=== PATIENT | male | born 1960 | race Caucasian/White ===

== ENCOUNTER 2017-10-05 17:18 | Inpatient (IN) | payer OTHER ==
[2017-10-05 17:43] VITALS: BMI 35.2
--- NOTE | 2017-10-05 21:36 | HP ---
CIWA Score - CIWA Score Nausea/Vomitin-Mild Nausea/No Vomiting Muscle Tremors: 4-Moderate,w/Arms Extend Anxiety: 4-Mod. Anxious/Guarded Agitation: 4-Moderately Restless Paroxysmal Sweats: 1-Minimal Palms Moist Orientation: 2-Disoriented Date<2 days Tacttile Disturbances: 0-None Auditory Disturbances: 0-None Visual Disturbances: 0-None Headache: 0-None Present CIWA-Ar Total Score: 16 Admission ROS BHS - HPI Chief Complaint: withdrawal sx Allergies/Adverse Reactions: Allergies Allergy/AdvReac Type Severity Reaction Status Date / Time No Known Allergies Allergy Verified 10/05/17 19:22 History of Present Illness: 56 years old male with long history of alcohol nicotine dependence has hypertension bipolar ii is admitted to detox Exam Limitations: No Limitations - Ebola screening Have you traveled outside of the country in the last 21 days: No Have you had contact with anyone from an Ebola affected area: No Have you been sick,other than usual withdrawal symptoms: No Do you have a fever: No - Review of Systems Constitutional: Changes in sleep, Weight Stable EENT: reports: Blurred Vision (eye glasses) Respiratory: reports: SOB with Exertion Cardiac: reports: No Symptoms Reported GI: reports: Nausea, Poor Fluid Intake, Abdominal cramping : reports: No Symptoms Reported Musculoskeletal: reports: Joint Pain (left knee and ankle) Integumentary: reports: No Symptoms Reported Neuro: reports: Seizure (09/28/17 cocaine induced no treatment), Tremors Endocrine: reports: No Symptoms Reported Hematology: reports: No Symptoms Reported Psychiatric: reports: Judgement Intact, Anxious, Depressed Other Systems: Reviewed and Negative Patient History - Patient Medical History Hx Anemia: No Hx Asthma: No Hx Chronic Obstructive Pulmonary Disease (COPD): No Hx Cancer: No Hx Cardiac Disorders: No Hx Congestive Heart Failure: No Hx Hypertension: Yes Hx Hypercholesterolemia: No Hx Pacemaker: No HX Cerebrovascular Accident: No Hx Seizures: Yes (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) Hx Dementia: No Hx Diabetes: No Hx Gastrointestinal Disorders: No Hx Liver Disease: No Hx Genitourinary Disorders: No Hx Sexually Transmitted Disorders: No Hx Renal Disease (ESRD): No Hx Thyroid Disease: No Hx Human Immunodeficiency Virus (HIV): No Hx Hepatitis C: No Hx Depression: No Hx Suicide Attempt: No Hx Bipolar Disorder: Yes Hx Schizophrenia: No - Patient Surgical History Past Surgical History: No Hx Neurologic Surgery: No Hx Cataract Extraction: No Hx Cardiac Surgery: No Hx Lung Surgery: No Hx Breast Surgery: No Hx Breast Biopsy: No Hx Abdominal Surgery: No Hx Appendectomy: No Hx Cholecystectomy: No Hx Genitourinary Surgery: No Hx Orthopedic Surgery: No - PPD History Previous Implant?: Yes Documented Results: Negative w/o proof Implanted On Prior [facility] Admission?: No PPD to be Administered?: Yes - Reproductive History Patient : No - Smoking Cessation Smoking history: Current every day smoker Have you smoked in the past 12 months: Yes Aproximately how many cigarettes per day: 40 Cigars Per Day: 0 Hx Chewing Tobacco Use: No Initiated information on smoking cessation: Yes 'Breaking Loose' booklet given: 10/05/17 - Substance & Tx. History Hx Alcohol Use: Yes Hx Substance Use: Yes Substance Use Type: Alcohol, Marijuana Hx Substance Use Treatment: Yes ([facility] 09/08/17) - Substances Abused Cocaine Route: Inhalation Frequency: Daily Amount used: $20 Age of first use: 17 Date of Last Use: 10/04/17 ETOH Route: Oral Frequency: Daily Amount used: 1 PINT -VODKA Age of first use: 17 Date of Last Use: 10/03/17 Marijuana/Hashish Route: Smoking Frequency: Daily Amount used: blund Age of first use: 15 Date of Last Use: 10/05/17 Family Disease History - Family Disease History Family Disease History: Other: Mother (dialysis kidney) Admission Physical Exam BHS - Vital Signs Vital Signs: Vital Signs - 24 hr 10/05/17 17:42 Temperature 97.5 F L Pulse Rate 69 Respiratory 18 Rate Blood Pressure 165/96 - Physical General Appearance: Yes: Appropriately Dressed, Mild Distress, Obese, Tremorous , Irritable, Sweating, Anxious HEENTM: Yes: Hearing grossly Normal, Normal ENT Inspection, Normocephalic, Normal Voice, Other (eye glasses) Respiratory: Yes: Chest Non-Tender, No Respiratory Distress, No Accessory Muscle Use, Hyperresonant Neck: Yes: Supple, Trachea in good position Breast: Yes: Breasts Symetrical Cardiology: Yes: Regular Rhythm, Regular Rate, S1, S2 Abdominal: Yes: Non Tender, Soft, Increased Bowel Sounds Genitourinary: Yes: Within Normal Limits Back: Yes: Normal Inspection Musculoskeletal: Yes: full range of Motion, Gait Steady, Muscle Pain (left knee) Extremities: Yes: Normal Inspection, Normal Range of Motion, Non-Tender, Tremors Neurological: Yes: Alert, Motor Strength 5/5, Normal Response, Depressed Affect Integumentary: Yes: Warm Lymphatic: Yes: Within Normal Limits - Diagnostic (1) Alcohol dependence with uncomplicated withdrawal Current Visit: Yes Status: Acute (2) Nicotine dependence Current Visit: Yes Status: Acute Qualifiers: Nicotine product type: cigarettes Substance use status: in withdrawal Qualified Code(s): F17.213 - Nicotine dependence, cigarettes, with withdrawal (3) Bipolar II disorder Current Visit: Yes Status: Suspected (4) Hypertension Current Visit: Yes Status: Chronic Qualifiers: Hypertension type: essential hypertension Qualified Code(s): I10 - Essential (primary) hypertension Cleared for Admission S - Detox or Rehab [facility] Level of Care: Medically Managed Detox Regimen/Protocol: Librium S Breath Alcohol Content Breath Alcohol Content: 0 Urine Drug Screen - Control Is Test Valid: Yes - Results Drug Screen Negative: No Urine Drug Screen Results: THC-Marijuana
[2017-10-05] MEDS ORDERED: NICOTINE POLACRILEX 4 MG GUM BC PRN (21:43)
[2017-10-05] MEDS ORDERED: guaiFENesin/D-METHORPHAN HB 10 ML UNIT-DOSE CUPS PO PRN (21:43)
[2017-10-05] MEDS ORDERED: MAGNESIUM CITRATE 300 ML BOTTLE PO PRN (21:43)
[2017-10-05] MEDS ORDERED: MAG HYDROX/AL HYDROX/SIMETH 30 ML UNIT-DOSE CUP PO PRN (21:43)
[2017-10-05] MEDS ORDERED: MAGNESIUM HYDROX 2400MG/30ML ORAL SUSPENSION 30 ML CUP PO PRN (21:43)
[2017-10-05] MEDS ORDERED: IBUPROFEN 400 MG TABLET (FP) PO PRN (21:43)
[2017-10-05] MEDS ORDERED: LOPERAMIDE HCL 2 MG CAPSULE PO PRN (21:43)
[2017-10-05] MEDS ORDERED: chlordiazePOXIDE HCL 25 MG CAPSULE PO PRN (21:43)
[2017-10-05] MEDS ORDERED: P-EPHED 60MG/TRIPROLIDI 2.5MG TABLET PO PRN (21:43)
[2017-10-05] MEDS ORDERED: ACETAMINOPHEN 325 MG TABLET (FP) PO PRN (21:43)
[2017-10-05] MEDS ORDERED: MENTHOL/PHENOL 1 EACH UD MM PRN (21:43)
[2017-10-05] MEDS ORDERED: ALBUTEROL SO4 0.083% IH SOL 2.5 MG/3 ML VIAL.NEB. NEB PRN (21:49)
[2017-10-05] MEDS ORDERED: ALBUTEROL SO4 18 GM HFA INHALER IH PRN (21:49)
[2017-10-05] MEDS: THIAMINE HCL 100 MG TABLET (FP) PO SCH (22:26)
[2017-10-05] MEDS: chlordiazePOXIDE HCL 25 MG CAPSULE PO SCH (22:27)
[2017-10-05] MEDS: amLODIPine BESYLATE 5 MG TABLET (FP) PO SCH (22:27)
[2017-10-06] MEDS: chlordiazePOXIDE HCL 25 MG CAPSULE PO SCH ×4 (06:54→22:10)
[2017-10-06 09:55] LABS: ALBUMIN 2.8 g/dl (3.4-5.0); ALK PHOS 109 U/L (45-117); ANION GAP 5 (8-16); BILIRUBIN,TOTAL 0.9 mg/dL (0.2-1.0); BLOOD UREA NITROGEN 14 mg/dL (7-18); CHLORIDE 109 mmol/L (98-107); CO2 29 mmol/L (21-32); CREATININE 0.6 mg/dL (0.7-1.3); GLUCOSE,RANDOM 87 mg/dL (74-106); POTASSIUM 3.6 mmol/L (3.5-5.1); SGOT/AST 42 U/L (15-37); SGPT/ALT 44 U/L (12-78); SODIUM 143 mmol/L (136-145); TOT PROT 6.9 g/dl (6.4-8.2)
[2017-10-06 09:58] LABS: HEMATOCRIT 45.7 % (35.4-49); HEMOGLOBIN 15.2 GM/dL (11.7-16.9); MCHC 33.2 g/dl (32.0-35.9); MEAN CELL VOLUME 102.2 fl (80-96); MEAN PLT VOLUME 10.4 fl (7.5-11.1); PLATELET COUNT 187 K/MM3 (134-434); RBC 4.48 M/mm3 (4.00-5.60); WHITE BLOOD COUNT 9.1 K/mm3 (4.0-10.0)
[2017-10-06] MEDS: amLODIPine BESYLATE 5 MG TABLET (FP) PO SCH ×2 (11:21→22:10)
[2017-10-06] MEDS: NICOTINE 21 MG/24 HOURS TOPICAL PATCH TD SCH (11:21)
[2017-10-06] MEDS: PRENATAL VITAMINS W/ FOLIC ACID TABLET (FP) PO SCH (11:21)
--- NOTE | 2017-10-06 11:40 | CONSULT ---
[facility] Psychiatric Consult - Data Date of interview: 10/06/17 Admission source: [facility] Identifying data: Pt is a 56 year old male, single, without kids, unemployed and homeless. This is patient's first admission to [facility]. Pt. admitted to for cocaine, alcohol, and marijuana dependence. Substance Abuse History: Following information confirmed by Mr. Mosquera: Smoking Cessation. Smoking history: Current every day smoker. Have you smoked in the past 12 months: Yes. Aproximately how many cigarettes per day: 40. - Substance & Tx. History. Hx Alcohol Use: Yes. Hx Substance Use: Yes. Substance Use Type: Alcohol, Marijuana. Hx Substance Use Treatment: Yes ([facility] 09/08/17). Cocaine- Route: Inhalation Frequency: Daily. Amount used : $20 Age of first use: 17. Date of Last Use: 10/04/17. ETOH- Route: Oral Frequency: Daily. Amount used: 1 PINT -VODKA Age of first use: 17. Date of Last Use: 10/03/17. Marijuana/Hashish- Route: Smoking. Frequency: Daily Amount used: blund. Age of first use: 15. Date of Last Use: 10/05/17 Medical History: Hypertension, Seizure (cocaine induced in 2017) Psychiatric History: Pt. denies h/o psychiatric hospitalizations and suicide attempts. Physical/Sexual Abuse/Trauma History: Denies. Additional Comment: Urine Drug Screen Results: THC-Marijuana Mental Status Exam - Mental Status Exam Alert and Oriented to: Time, Place, Person Cognitive Function: Fair Patient Appearance: Unkempt Mood: Withdrawn Affect: Flat Patient Behavior: Sedated, Fatigued, Guarded Speech Pattern: Delayed Voice Loudness: Moderately Soft/Quiet Thought Process: Goal Oriented Thought Disorder: Not Present Hallucinations: Denies Suicidal Ideation: Denies Homicidal Ideation: Denies Insight/Judgement: Poor Sleep: Fair Appetite: Fair Muscle strength/Tone: Normal Gait/Station: Other (Did not observe patient's walk as interview was conducted while patient was laying in bed.) Psychiatric Findings - Problem List ([place] 1, 2,3) (1) Alcohol dependence with uncomplicated withdrawal Current Visit: Yes Status: Acute (2) Cocaine dependence Current Visit: Yes Status: Acute (3) Cannabis dependence Current Visit: Yes Status: Acute (4) Nicotine dependence Current Visit: Yes Status: Acute Qualifiers: Nicotine product type: cigarettes Substance use status: in withdrawal Qualified Code(s): F17.213 - Nicotine dependence, cigarettes, with withdrawal - Initial Treatment Plan Initial Treatment Plan: Psychoeducation provided. Detox in progress. Observation.
[2017-10-06] MEDS ORDERED: FLU VACCINE QUAD 60 MCG/0.5 ML (MDV 17-18) IM ONE (12:00)
--- NOTE | 2017-10-06 15:28 | PN ---
S CIWA - CIWA Score Nausea/Vomitin Muscle Tremors: 3 Anxiety: 4-Mod. Anxious/Guarded Agitation: 4-Moderately Restless Paroxysmal Sweats: 3 Orientation: 0-Oriented Tacttile Disturbances: 1-Very Mild Itch/Numbness Auditory Disturbances: 0-None Visual Disturbances: 0-None Headache: 0-None Present CIWA-Ar Total Score: 18 BHS Progress Note (SOAP) Subjective: Sweating, nausea, interrupted sleep, anxious Objective: 10/06/17 15:26 Last Vital Signs Temp Pulse Resp BP Pulse Ox 98.2 F 76 20 156/90 10/06/17 15:01 10/06/17 15:01 10/06/17 15:01 10/06/17 15:01 Laboratory Tests 10/06/17 10/06/17 10/06/17 07:30 07:30 07:30 WBC 9.1 RBC 4.48 Hgb 15.2 Hct 45.7 MCV 102.2 H MCH 34.0 H MCHC 33.2 RDW 14.0 Plt Count 187 D MPV 10.4 Sodium 143 Potassium 3.6 Chloride 109 H Carbon Dioxide 29 Anion Gap 5 L BUN 14 D Creatinine 0.6 L Creat Clearance w eGFR > 60 Random Glucose 87 D Calcium 8.0 L Total Bilirubin 0.9 AST 42 H D ALT 44 D Alkaline Phosphatase 109 D Total Protein 6.9 Albumin 2.8 L RPR Titer Nonreactive Labs noted Assessment: 10/06/17 15:27 Withdrawal symptoms Plan: Continue detox Encouraged to drink lots of water
[2017-10-06] MEDS: cloNIDine HCL 0.1 MG TABLET PO PRN (22:10)
[2017-10-06] MEDS: THIAMINE HCL 100 MG TABLET (FP) PO SCH (22:10)
[2017-10-07] MEDS: chlordiazePOXIDE HCL 25 MG CAPSULE PO SCH ×4 (05:52→17:51)
[2017-10-07] MEDS: amLODIPine BESYLATE 5 MG TABLET (FP) PO SCH ×2 (10:19→22:07)
[2017-10-07] MEDS: PRENATAL VITAMINS W/ FOLIC ACID TABLET (FP) PO SCH (10:19)
[2017-10-07] MEDS: NICOTINE 21 MG/24 HOURS TOPICAL PATCH TD SCH ×2 (10:20→11:25)
--- NOTE | 2017-10-07 11:32 | EKG ---
Test Reason : Blood Pressure : / mmHG Vent. Rate : 072 BPM Atrial Rate : 072 BPM P-R Int : 148 ms QRS Dur : 092 ms QT Int : 414 ms P-R-T Axes : 002 008 043 degrees QTc Int : 453 ms NORMAL SINUS RHYTHM LEFT VENTRICULAR HYPERTROPHY WITH REPOLARIZATION ABNORMALITY ABNORMAL ECG WHEN COMPARED WITH ECG OF 22-OCT-2011 09:14, VENT. RATE HAS INCREASED BY 25 BPM NONSPECIFIC T WAVE ABNORMALITY NO LONGER EVIDENT IN INFERIOR LEADS NONSPECIFIC T WAVE ABNORMALITY NO LONGER EVIDENT IN ANTERIOR LEADS CLINICAL CORRELATION IS RECOMMENDED Confirmed by JOSHUA LE, PALAK ([id number]) on 10/07/2017 11:31:53 AM Referred By: Confirmed By:PALAK LEWIS MD
--- NOTE | 2017-10-07 16:36 | PN ---
[facility] CIWA - CIWA Score Nausea/Vomitin Muscle Tremors: 3 Anxiety: 3 Agitation: 3 Paroxysmal Sweats: 1-Minimal Palms Moist Orientation: 0-Oriented Tacttile Disturbances: 0-None Auditory Disturbances: 0-None Visual Disturbances: 0-None Headache: 0-None Present CIWA-Ar Total Score: 12 S Progress Note (SOAP) Subjective: sleepy, nauseous, tremulous and anxious Objective: 10/07/17 16:34 Vital Signs Temperature 97.9 F 10/07/17 14:27 Pulse Rate 70 10/07/17 14:27 Respiratory Rate 185 H 10/07/17 14:27 Blood Pressure 142/74 10/07/17 14:27 O2 Sat by Pulse Oximetry (%) Laboratory Last Values WBC 9.1 K/mm3 (4.0-10.0) 10/06/17 07:30 RBC 4.48 M/mm3 (4.00-5.60) 10/06/17 07:30 Hgb 15.2 GM/dL (11.7-16.9) 10/06/17 07:30 Hct 45.7 % (35.4-49) 10/06/17 07:30 MCV 102.2 fl (80-96) H 10/06/17 07:30 MCH 34.0 pg (25.7-33.7) H 10/06/17 07:30 MCHC 33.2 g/dl (32.0-35.9) 10/06/17 07:30 RDW 14.0 % (11.9-15.9) 10/06/17 07:30 Plt Count 187 K/MM3 (134-434) D 10/06/17 07:30 MPV 10.4 fl (7.5-11.1) 10/06/17 07:30 Sodium 143 mmol/L (136-145) 10/06/17 07:30 Potassium 3.6 mmol/L (3.5-5.1) 10/06/17 07:30 Chloride 109 mmol/L (98-107) H 10/06/17 07:30 Carbon Dioxide 29 mmol/L (21-32) 10/06/17 07:30 Anion Gap 5 (8-16) L 10/06/17 07:30 BUN 14 mg/dL (7-18) D 10/06/17 07:30 Creatinine 0.6 mg/dL (0.7-1.3) L 10/06/17 07:30 Creat Clearance w eGFR > 60 (>60) 10/06/17 07:30 Random Glucose 87 mg/dL (74-106) D 10/06/17 07:30 Calcium 8.0 mg/dL (8.5-10.1) L 10/06/17 07:30 Total Bilirubin 0.9 mg/dL (0.2-1.0) 10/06/17 07:30 AST 42 U/L (15-37) H D 10/06/17 07:30 ALT 44 U/L (12-78) D 10/06/17 07:30 Alkaline Phosphatase 109 U/L (45-117) D 10/06/17 07:30 Total Protein 6.9 g/dl (6.4-8.2) 10/06/17 07:30 Albumin 2.8 g/dl (3.4-5.0) L 10/06/17 07:30 RPR Titer Nonreactive (NONREACTIVE) 10/06/17 07:30 labs noted Assessment: 10/07/17 16:35 withdrawal sx Not in acute distress Plan: continue detox
[2017-10-07] MEDS: THIAMINE HCL 100 MG TABLET (FP) PO SCH (22:07)
[2017-10-07] MEDS: chlordiazePOXIDE 5 MG CAPSULE PO SCH (22:07)
[2017-10-08] MEDS: chlordiazePOXIDE 5 MG CAPSULE PO SCH ×3 (06:29→17:22)
[2017-10-08] MEDS: NICOTINE 21 MG/24 HOURS TOPICAL PATCH TD SCH (12:27)
[2017-10-08] MEDS: PRENATAL VITAMINS W/ FOLIC ACID TABLET (FP) PO SCH (12:34)
[2017-10-08] MEDS: amLODIPine BESYLATE 5 MG TABLET (FP) PO SCH ×2 (12:34→22:40)
--- NOTE | 2017-10-08 15:29 | PN ---
BHS Progress Note (SOAP) Subjective: slight tremors "sweats here and there" Objective: 10/08/17 15:28 Vital Signs Temperature 97.7 F 10/08/17 14:23 Pulse Rate 77 10/08/17 14:23 Respiratory Rate 16 10/08/17 14:23 Blood Pressure 156/92 10/08/17 14:23 O2 Sat by Pulse Oximetry (%) Assessment: 10/08/17 15:28 withdrawal sx No acute distress Plan: continue detox
[2017-10-08] MEDS: THIAMINE HCL 100 MG TABLET (FP) PO SCH (22:40)
[2017-10-08] MEDS: chlordiazePOXIDE HCL 10 MG CAPSULE PO SCH (22:40)
[2017-10-09] MEDS: chlordiazePOXIDE HCL 10 MG CAPSULE PO SCH ×3 (06:05→18:37)
--- NOTE | 2017-10-09 09:55 | PN ---
BHS Progress Note (SOAP) Subjective: ALERT,IRRITABLE,ANXIOUS.INTERRUPTED SLEEP Objective: 10/09/17 09:54 Vital Signs Temperature 97.7 F 10/09/17 06:00 Pulse Rate 68 10/09/17 06:00 Respiratory Rate 18 10/09/17 06:00 Blood Pressure 139/93 10/09/17 06:00 O2 Sat by Pulse Oximetry (%) Assessment: 10/09/17 09:54 WITHDRAWAL SYMPTOM Plan: CONTINUE DETOX,DISCHARGE IN AM
[2017-10-09] MEDS: amLODIPine BESYLATE 5 MG TABLET (FP) PO SCH ×2 (10:16→22:09)
[2017-10-09] MEDS: PRENATAL VITAMINS W/ FOLIC ACID TABLET (FP) PO SCH (10:16)
[2017-10-09] MEDS: NICOTINE 21 MG/24 HOURS TOPICAL PATCH TD SCH (10:19)
--- NOTE | 2017-10-09 10:53 | PN ---
BHS Progress Note (SOAP) Subjective: ALERT,IRRITABLE,ANXIOUS,INTERRUPTED SLEEP
[2017-10-09] MEDS: THIAMINE HCL 100 MG TABLET (FP) PO SCH (22:09)
--- NOTE | 2017-10-10 09:06 | DS ---
[facility] Detox Discharge Summary Admission Date: 10/05/17 Discharge Date: 10/10/17 - History Present History: Alcohol Dependence, Cannabis Dependence, Cocaine Dependence - Physical Exam Results Vital Signs: Vital Signs Temperature 98.4 F 10/10/17 05:54 Pulse Rate 65 10/10/17 05:54 Respiratory Rate 16 10/10/17 05:54 Blood Pressure 150/88 10/10/17 05:54 O2 Sat by Pulse Oximetry (%) - Treatment Hospital Course: Detox Protocol Followed, Detoxed Safely, Responded well, Discharged Condition Good, Rehab Referral Accepted - Medication Discharge Medications: Ambulatory Orders NK [No Known Home Medication] 10/05/17 - Diagnosis (1) Alcohol dependence with uncomplicated withdrawal Current Visit: Yes Status: Chronic (2) Nicotine dependence Current Visit: Yes Status: Chronic Qualifiers: Nicotine product type: cigarettes Substance use status: uncomplicated Qualified Code(s): F17.210 - Nicotine dependence, cigarettes, uncomplicated (3) Asthma Current Visit: Yes Status: Chronic Qualifiers: Asthma complication type: uncomplicated (4) Bipolar II disorder Current Visit: Yes Status: Chronic (5) Cannabis dependence Current Visit: Yes Status: Chronic (6) Cocaine dependence Current Visit: Yes Status: Chronic Qualifiers: Substance use status: uncomplicated Qualified Code(s): F14.20 - Cocaine dependence, uncomplicated (7) Hypertension Current Visit: Yes Status: Chronic Qualifiers: Hypertension type: essential hypertension Qualified Code(s): I10 - Essential (primary) hypertension (8) Seizure Current Visit: Yes Status: Chronic - AMA Did Patient Leave Against Medical Advice: No
[2017-10-10] MEDS: NICOTINE 21 MG/24 HOURS TOPICAL PATCH TD SCH (10:07)
[2017-10-10] MEDS: PRENATAL VITAMINS W/ FOLIC ACID TABLET (FP) PO SCH (10:07)
[2017-10-10] MEDS: amLODIPine BESYLATE 5 MG TABLET (FP) PO SCH (10:07)
[2017-10-10 10:34] VITALS: TEMP 97.7
[2017-10-10] MEDS: cloNIDine HCL 0.1 MG TABLET PO PRN (10:36)
[2017-10-10 11:44] VITALS: BP 150/90; PULSE 77
== END 2017-10-10 11:00 | disposition home or self-care (01) | DRG 774 ==
LOC: YASAS 17:18 → Y6N 19:43
PROVIDERS: ADMIT Internal Medicine; ATTEND Internal Medicine
PROC: HZ2ZZZZ Detoxification Services for Substance Abuse Treatment (ICD-10-PCS; principal; 2017-10-05)
DX: F10.230 Alcohol dependence with withdrawal, uncomplicated (principal); F14.20 Cocaine dependence, uncomplicated; F12.20 Cannabis dependence, uncomplicated; F17.210 Nicotine dependence, cigarettes, uncomplicated; F31.81 Bipolar II disorder; I10 Essential (primary) hypertension; J45.909 Unspecified asthma, uncomplicated; E66.9 Obesity, unspecified; Z68.35 Body mass index [BMI] 35.0-35.9, adult; Z86.69 Personal history of other diseases of the nervous system and sense organs
CPT/HCPCS: 36415; 80053; 81003; 85027; 86593; 90688; 93005; 93010; G0008

== ENCOUNTER 2019-11-30 12:36 | Inpatient (IN) | payer OTHER ==
--- NOTE | 2019-11-30 12:48 | BHS.RME ---
Substance Use & Tx History - Substance Use History Alcohol Substance amount: 1 pint liquor Frequency of use: Daily Substance route: Oral Date of Last Use: 11/29/19 cocaine Substance amount: $50 Frequency of use: Daily Substance route: Inhalation (ex: sniffing or snorting), Smoking Date of Last Use: 11/29/19 marijuana Substance amount: 2 blunts Frequency of use: Daily Substance route: Oral Date of Last Use: 11/29/19 - Last Treatment Date of last treatment: 10/05/2017 Treatment type: Substance Use Disorder ([facility]UEL) Where was last treatment: Detox Physical/Psych/Mental Status - Behavior General Behavior: Increased activity (restlessness, agitation) Eye Contact: Normal - Cooperativeness Cooperativeness: Cooperative - Thinking Thought content: Future oriented - Physical Health Problems Is patient presently having any pain?: No Does patient presently have any injuries (include location): No Does patient currently have a fever: No Is patient : No CIWA Nausea/Vomitin Muscle Tremors: 4-Moderate,w/Arms Extend Anxiety: 3 Agitation: 1-Slight > Activity Paroxysmal Sweats: 1-Minimal Palms Moist Orientation: 1-Uncertain about Date Tacttile Disturbances: 1-Very Mild Itch/Numbness Auditory Disturbances: 0-None Visual Disturbances: 0-None Headache: 2-Mild CIWA-Ar Total Score: 15
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
[2019-11-30] MEDS ORDERED: chlordiazePOXIDE HCL 25 MG CAPSULE PO ONE (14:04)
[2019-11-30] MEDS ORDERED: MAG HYDROX/AL HYDROX/SIMETH 30 ML UNIT-DOSE CUP PO PRN (14:04)
[2019-11-30] MEDS ORDERED: MENTHOL/PHENOL 1 EACH UD MM PRN (14:04)
[2019-11-30] MEDS ORDERED: MAGNESIUM CITRATE 300 ML BOTTLE PO PRN (14:04)
[2019-11-30] MEDS ORDERED: IBUPROFEN 400 MG TABLET (FP) PO PRN (14:04)
[2019-11-30] MEDS ORDERED: hydrOXYzine PAMOATE 25 MG CAPSULE (FP) PO PRN (14:04)
[2019-11-30] MEDS ORDERED: ACETAMINOPHEN 325 MG TABLET (FP) PO PRN ×2 (14:04)
[2019-11-30] MEDS ORDERED: NICOTINE POLACRILEX 2 MG GUM BUC PRN (14:04)
[2019-11-30] MEDS ORDERED: MAGNESIUM HYDROX 2400MG/30ML ORAL SUSPENSION 30 ML CUP PO PRN (14:04)
[2019-11-30] MEDS ORDERED: METHOCARBAMOL 500 MG TABLET PO PRN (14:04)
[2019-11-30] MEDS ORDERED: chlordiazePOXIDE HCL 10 MG CAPSULE PO PRN (14:04)
[2019-11-30] MEDS ORDERED: LISINOPRIL 10 MG TABLET (FP) PO SCH (14:15)
[2019-11-30 14:49] VITALS: BMI 32.3
[2019-11-30] MEDS: HYDROCHLOROTHIAZIDE 25 MG TABLET (FP) PO SCH (15:47)
[2019-11-30] MEDS: NICOTINE 14 MG/24 HOURS TOPICAL PATCH TD SCH (15:50)
[2019-11-30] MEDS: ALBUTEROL SO4 HFA INHALER IH PRN (19:03)
[2019-11-30] MEDS ORDERED: traZODone HCL 50 MG TABLET (FP) PO ONE (22:00)
[2019-11-30] MEDS: chlordiazePOXIDE HCL 25 MG CAPSULE PO SCH (22:14)
[2019-11-30] MEDS: THIAMINE HCL 100 MG TABLET (FP) PO SCH (22:14)
[2019-11-30] MEDS: MELATONIN 5 MG TABLETS PO PRN (22:15)
[2019-12-01] MEDS: chlordiazePOXIDE HCL 25 MG CAPSULE PO SCH ×3 (05:58→22:05)
[2019-12-01 09:41] LABS: HEMATOCRIT 43.9 % (35.4-49); HEMOGLOBIN 15.1 GM/dL (11.7-16.9); MCH 34.3 pg (25.7-33.7); MCHC 34.4 g/dl (32.0-35.9); MEAN CELL VOLUME 99.8 fl (80-96); MEAN PLT VOLUME 10.3 fl (7.5-11.1); PLATELET COUNT 168 K/MM3 (134-434); RBC 4.41 M/mm3 (4.00-5.60); RDW 13.9 % (11.9-15.9); WHITE BLOOD COUNT 6.6 K/mm3 (4.0-10.0)
[2019-12-01 09:58] LABS: ALBUMIN 2.9 g/dl (3.4-5.0); BILIRUBIN,TOTAL 0.8 mg/dL (0.2-1); BLOOD UREA NITROGEN 18.4 mg/dL (7-18); CALCIUM 9.1 mg/dL (8.5-10.1); CREATININE 0.8 mg/dL (0.55-1.3); POTASSIUM 3.5 mmol/L (3.5-5.1); TOT PROT 6.2 g/dl (6.4-8.2)
--- NOTE | 2019-12-01 10:18 | PN ---
S CIWA - CIWA Score Nausea/Vomitin-Mild Nausea/No Vomiting Muscle Tremors: 4-Moderate,w/Arms Extend Anxiety: 3 Agitation: 1-Slight > Activity Paroxysmal Sweats: 2 Orientation: 0-Oriented Tacttile Disturbances: 1-Very Mild Itch/Numbness Auditory Disturbances: 0-None Visual Disturbances: 1-Very Mild Sensitivity Headache: 0-None Present CIWA-Ar Total Score: 13 BHS Progress Note (SOAP) Subjective: 59 years old male admitted on 11/30/19 for alcohol withdrawal sx management treating with librium detox regiment feeling tired today resting in bed limited conversation with staff Objective: 12/01/19 10:15 Vital Signs Temperature 97.2 F L 12/01/19 09:29 Pulse Rate 60 12/01/19 09:29 Respiratory Rate 63 H 12/01/19 09:29 Blood Pressure 146/93 12/01/19 09:29 O2 Sat by Pulse Oximetry (%) Laboratory Last Values WBC 6.6 K/mm3 (4.0-10.0) 12/01/19 07:10 RBC 4.41 M/mm3 (4.00-5.60) 12/01/19 07:10 Hgb 15.1 GM/dL (11.7-16.9) 12/01/19 07:10 Hct 43.9 % (35.4-49) 12/01/19 07:10 MCV 99.8 fl (80-96) H 12/01/19 07:10 MCH 34.3 pg (25.7-33.7) H 12/01/19 07:10 MCHC 34.4 g/dl (32.0-35.9) 12/01/19 07:10 RDW 13.9 % (11.9-15.9) 12/01/19 07:10 Plt Count 168 K/MM3 (134-434) 12/01/19 07:10 MPV 10.3 fl (7.5-11.1) 12/01/19 07:10 Sodium 142 mmol/L (136-145) 12/01/19 07:10 Potassium 3.5 mmol/L (3.5-5.1) 12/01/19 07:10 Chloride 106 mmol/L (98-107) 12/01/19 07:10 Carbon Dioxide 32 mmol/L (21-32) 12/01/19 07:10 Anion Gap 4 MMOL/L (8-16) L 12/01/19 07:10 BUN 18.4 mg/dL (7-18) H 12/01/19 07:10 Creatinine 0.8 mg/dL (0.55-1.3) 12/01/19 07:10 Est GFR (CKD-EPI)AfAm 114.93 12/01/19 07:10 Est GFR (CKD-EPI)NonAf 99.16 12/01/19 07:10 Random Glucose 86 mg/dL (74-106) 12/01/19 07:10 Calcium 9.1 mg/dL (8.5-10.1) 12/01/19 07:10 Total Bilirubin 0.8 mg/dL (0.2-1) 12/01/19 07:10 AST 47 U/L (15-37) H 12/01/19 07:10 ALT 31 U/L (13-61) 12/01/19 07:10 Alkaline Phosphatase 64 U/L (45-117) 12/01/19 07:10 Total Protein 6.2 g/dl (6.4-8.2) L 12/01/19 07:10 Albumin 2.9 g/dl (3.4-5.0) L 12/01/19 07:10 lab noted 12/01/19 10:16 long history of hypertension treated with hctz and lisinopril patient states that he did not take antihypertensive while drinking the alcohol alcohol Assessment: 12/01/19 10:17 alcohol withdrawal Plan: librium regiment
[2019-12-01] MEDS: PRENATAL VITAMINS W/ FOLIC ACID TABLET (FP) PO SCH (10:38)
[2019-12-01] MEDS: HYDROCHLOROTHIAZIDE 25 MG TABLET (FP) PO SCH (10:38)
[2019-12-01] MEDS: LISINOPRIL 10 MG TABLET (FP) PO SCH (10:39)
[2019-12-01] MEDS: NICOTINE 14 MG/24 HOURS TOPICAL PATCH TD SCH (10:39)
[2019-12-01] MEDS ORDERED: FLU VACCINE QUAD 60 MCG/0.5 ML (MDV 19-20) IM ONE (12:00)
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
[2019-12-01] MEDS: ARIPiprazole 5 MG TABLET PO SCH (15:47)
[2019-12-01] MEDS: THIAMINE HCL 100 MG TABLET (FP) PO SCH (22:05)
[2019-12-01] MEDS: MELATONIN 5 MG TABLETS PO PRN (22:06)
[2019-12-01] MEDS: traZODone HCL 50 MG TABLET (FP) PO SCH (22:06)
[2019-12-02] MEDS: chlordiazePOXIDE 5 MG CAPSULE PO SCH ×4 (05:43→22:25)
--- NOTE | 2019-12-02 09:18 | PN ---
[facility] CIWA - CIWA Score Nausea/Vomitin-Mild Nausea/No Vomiting Muscle Tremors: 3 Anxiety: 3 Agitation: 0-Normal Activity Paroxysmal Sweats: 2 Orientation: 0-Oriented Tacttile Disturbances: 0-None Auditory Disturbances: 0-None Visual Disturbances: 1-Very Mild Sensitivity Headache: 1-Very Mild CIWA-Ar Total Score: 11 S Progress Note (SOAP) Subjective: 59 years old male admitted on 11/30/19 for alcohol withdrawal sx management treating with librium detox regiment feeling ok today eating breakfast in room no trouble chewing nor swallowing speech clearly and coherently tolerated food and fluid well Objective: 12/02/19 09:17 Vital Signs Temperature 98.3 F 12/02/19 08:30 Pulse Rate 76 12/02/19 08:30 Respiratory Rate 18 12/02/19 08:30 Blood Pressure 128/86 12/02/19 08:30 O2 Sat by Pulse Oximetry (%) Laboratory Last Values WBC 6.6 K/mm3 (4.0-10.0) 12/01/19 07:10 RBC 4.41 M/mm3 (4.00-5.60) 12/01/19 07:10 Hgb 15.1 GM/dL (11.7-16.9) 12/01/19 07:10 Hct 43.9 % (35.4-49) 12/01/19 07:10 MCV 99.8 fl (80-96) H 12/01/19 07:10 MCH 34.3 pg (25.7-33.7) H 12/01/19 07:10 MCHC 34.4 g/dl (32.0-35.9) 12/01/19 07:10 RDW 13.9 % (11.9-15.9) 12/01/19 07:10 Plt Count 168 K/MM3 (134-434) 12/01/19 07:10 MPV 10.3 fl (7.5-11.1) 12/01/19 07:10 Sodium 142 mmol/L (136-145) 12/01/19 07:10 Potassium 3.5 mmol/L (3.5-5.1) 12/01/19 07:10 Chloride 106 mmol/L (98-107) 12/01/19 07:10 Carbon Dioxide 32 mmol/L (21-32) 12/01/19 07:10 Anion Gap 4 MMOL/L (8-16) L 12/01/19 07:10 BUN 18.4 mg/dL (7-18) H 12/01/19 07:10 Creatinine 0.8 mg/dL (0.55-1.3) 12/01/19 07:10 Est GFR (CKD-EPI)AfAm 114.93 12/01/19 07:10 Est GFR (CKD-EPI)NonAf 99.16 12/01/19 07:10 Random Glucose 86 mg/dL (74-106) 12/01/19 07:10 Calcium 9.1 mg/dL (8.5-10.1) 12/01/19 07:10 Total Bilirubin 0.8 mg/dL (0.2-1) 12/01/19 07:10 AST 47 U/L (15-37) H 12/01/19 07:10 ALT 31 U/L (13-61) 12/01/19 07:10 Alkaline Phosphatase 64 U/L (45-117) 12/01/19 07:10 Total Protein 6.2 g/dl (6.4-8.2) L 12/01/19 07:10 Albumin 2.9 g/dl (3.4-5.0) L 12/01/19 07:10 RPR Titer Nonreactive (NONREACTIVE) 12/01/19 07:10 HIV 1&2 Antibody Screen Negative 12/01/19 07:10 HIV P24 Antigen Negative 12/01/19 07:10 lab noted Assessment: 12/02/19 09:18 alcohol withdrawal Plan: librium regiment
[2019-12-02] MEDS: LISINOPRIL 10 MG TABLET (FP) PO SCH (10:19)
[2019-12-02] MEDS: HYDROCHLOROTHIAZIDE 25 MG TABLET (FP) PO SCH (10:19)
[2019-12-02] MEDS: PRENATAL VITAMINS W/ FOLIC ACID TABLET (FP) PO SCH (10:19)
[2019-12-02] MEDS: NICOTINE 14 MG/24 HOURS TOPICAL PATCH TD SCH (11:14)
[2019-12-02] MEDS: ARIPiprazole 5 MG TABLET PO SCH (14:27)
[2019-12-02] MEDS: THIAMINE HCL 100 MG TABLET (FP) PO SCH (22:27)
[2019-12-02] MEDS: traZODone HCL 50 MG TABLET (FP) PO SCH (22:34)
[2019-12-03] MEDS ORDERED: chlordiazePOXIDE HCL 10 MG CAPSULE PO PRN
[2019-12-03] MEDS: chlordiazePOXIDE HCL 10 MG CAPSULE PO SCH ×3 (05:58→21:22)
[2019-12-03] MEDS ORDERED: LOPERAMIDE HCL 2 MG CAPSULE PO ONE (08:45)
[2019-12-03] MEDS: ARIPiprazole 5 MG TABLET PO SCH (10:22)
[2019-12-03] MEDS: LISINOPRIL 10 MG TABLET (FP) PO SCH (10:22)
[2019-12-03] MEDS: HYDROCHLOROTHIAZIDE 25 MG TABLET (FP) PO SCH (10:22)
[2019-12-03] MEDS: PRENATAL VITAMINS W/ FOLIC ACID TABLET (FP) PO SCH (10:22)
[2019-12-03] MEDS: NICOTINE 14 MG/24 HOURS TOPICAL PATCH TD SCH (10:22)
--- NOTE | 2019-12-03 12:44 | PN ---
S CIWA - CIWA Score Nausea/Vomitin-No Nausea/No Vomiting Muscle Tremors: 2 Anxiety: 2 Agitation: 1-Slight > Activity Paroxysmal Sweats: 2 Orientation: 0-Oriented Tacttile Disturbances: 0-None Auditory Disturbances: 0-None Visual Disturbances: 1-Very Mild Sensitivity Headache: 0-None Present CIWA-Ar Total Score: 8 S Progress Note (SOAP) Subjective: 59 years old male admitted on 11/30/19 for alcohol withdrawal sx management treating wtih librium detox regiment diarrhea imodium 4 mg po x 1 reports abdominal cramping bentyle 20 mg po x 1 Objective: 12/03/19 12:50 Vital Signs Temperature 98 F 12/03/19 08:44 Pulse Rate 72 12/03/19 08:44 Respiratory Rate 20 12/03/19 08:44 Blood Pressure 138/86 12/03/19 08:44 O2 Sat by Pulse Oximetry (%) Laboratory Last Values WBC 6.6 K/mm3 (4.0-10.0) 12/01/19 07:10 RBC 4.41 M/mm3 (4.00-5.60) 12/01/19 07:10 Hgb 15.1 GM/dL (11.7-16.9) 12/01/19 07:10 Hct 43.9 % (35.4-49) 12/01/19 07:10 MCV 99.8 fl (80-96) H 12/01/19 07:10 MCH 34.3 pg (25.7-33.7) H 12/01/19 07:10 MCHC 34.4 g/dl (32.0-35.9) 12/01/19 07:10 RDW 13.9 % (11.9-15.9) 12/01/19 07:10 Plt Count 168 K/MM3 (134-434) 12/01/19 07:10 MPV 10.3 fl (7.5-11.1) 12/01/19 07:10 Sodium 142 mmol/L (136-145) 12/01/19 07:10 Potassium 3.5 mmol/L (3.5-5.1) 12/01/19 07:10 Chloride 106 mmol/L (98-107) 12/01/19 07:10 Carbon Dioxide 32 mmol/L (21-32) 12/01/19 07:10 Anion Gap 4 MMOL/L (8-16) L 12/01/19 07:10 BUN 18.4 mg/dL (7-18) H 12/01/19 07:10 Creatinine 0.8 mg/dL (0.55-1.3) 12/01/19 07:10 Est GFR (CKD-EPI)AfAm 114.93 12/01/19 07:10 Est GFR (CKD-EPI)NonAf 99.16 12/01/19 07:10 Random Glucose 86 mg/dL (74-106) 12/01/19 07:10 Calcium 9.1 mg/dL (8.5-10.1) 12/01/19 07:10 Total Bilirubin 0.8 mg/dL (0.2-1) 12/01/19 07:10 AST 47 U/L (15-37) H 12/01/19 07:10 ALT 31 U/L (13-61) 12/01/19 07:10 Alkaline Phosphatase 64 U/L (45-117) 12/01/19 07:10 Total Protein 6.2 g/dl (6.4-8.2) L 12/01/19 07:10 Albumin 2.9 g/dl (3.4-5.0) L 12/01/19 07:10 RPR Titer Nonreactive (NONREACTIVE) 12/01/19 07:10 HIV 1&2 Antibody Screen Negative 12/01/19 07:10 HIV P24 Antigen Negative 12/01/19 07:10 lab noted Assessment: 12/03/19 12:50 alcohol withdrawal Plan: librium regiment
[2019-12-03] MEDS ORDERED: DICYCLOMINE HCL 10 MG CAPSULE PO ONE (13:30)
[2019-12-03] MEDS: BISMUTH SUBSALICYLATE 524 MG/30 ML UD PO PRN (17:42)
[2019-12-03] MEDS: traZODone HCL 50 MG TABLET (FP) PO SCH (21:22)
[2019-12-03] MEDS: THIAMINE HCL 100 MG TABLET (FP) PO SCH (21:22)
[2019-12-04] MEDS ORDERED: chlordiazePOXIDE HCL 10 MG CAPSULE PO ONE (05:00)
[2019-12-04] MEDS: BISMUTH SUBSALICYLATE 524 MG/30 ML UD PO PRN ×2 (05:45→18:10)
[2019-12-04] MEDS ORDERED: DIPHENOXYLATE 2.5/ATROPINE.025 1 COMBO TABLET PO ONE (08:40)
--- NOTE | 2019-12-04 08:42 | DS ---
[facility] Detox Discharge Summary Admission Date: 11/30/19 Discharge Date: 12/04/19 - History Present History: Alcohol Dependence Additional Comments: seen by psychiatrist raghav castro Pertinent Past History: time for discharge - Physical Exam Results Vital Signs: Vital Signs Temperature 97.6 F 12/04/19 06:48 Pulse Rate 70 12/04/19 06:48 Respiratory Rate 18 12/04/19 06:48 Blood Pressure 121/75 12/04/19 06:48 O2 Sat by Pulse Oximetry (%) - Treatment Hospital Course: Detox Protocol Followed, Detoxed Safely, Responded well, Discharged Condition Good, Rehab Referral Accepted - Medication Discharge Medications: Ambulatory Orders Aripiprazole [Abilify] 5 mg PO DAILY 11/30/19 Lisinopril/Hydrochlorothiazide [Lisinopril-Hctz 20-25 mg Tab] 20 mg PO DAILY traZODone HCL [Trazodone HCl] 50 mg PO HS 11/30/19 - AMA Did Patient Leave Against Medical Advice: No CIWA Score - CIWA Score Nausea/Vomitin-No Nausea/No Vomiting Muscle Tremors: 2 Anxiety: 1-Mildly Anxious Agitation: 0-Normal Activity Paroxysmal Sweats: 1-Minimal Palms Moist Orientation: 0-Oriented Tacttile Disturbances: 0-None Auditory Disturbances: 0-None Visual Disturbances: 1-Very Mild Sensitivity Headache: 0-None Present CIWA-Ar Total Score: 5
[2019-12-04] MEDS: PRENATAL VITAMINS W/ FOLIC ACID TABLET (FP) PO SCH (09:29)
[2019-12-04] MEDS: ARIPiprazole 5 MG TABLET PO SCH (09:29)
[2019-12-04] MEDS: LISINOPRIL 10 MG TABLET (FP) PO SCH (09:29)
[2019-12-04] MEDS: HYDROCHLOROTHIAZIDE 25 MG TABLET (FP) PO SCH (09:29)
[2019-12-04] MEDS: NICOTINE 14 MG/24 HOURS TOPICAL PATCH TD SCH (09:30)
[2019-12-04] MEDS: ALBUTEROL SO4 HFA INHALER IH PRN (09:32)
--- NOTE | 2019-12-04 16:29 | PN ---
S CIWA - CIWA Score Nausea/Vomitin-No Nausea/No Vomiting Muscle Tremors: 1-None Visible, but Stuart Anxiety: 1-Mildly Anxious Agitation: 0-Normal Activity Paroxysmal Sweats: 1-Minimal Palms Moist Orientation: 0-Oriented Tacttile Disturbances: 0-None Auditory Disturbances: 0-None Visual Disturbances: 1-Very Mild Sensitivity Headache: 1-Very Mild CIWA-Ar Total Score: 5 BHS Progress Note (SOAP) Subjective: patient determines to maintain sober aftercare facility transportation available 12/05/19 due to high risks of relapse and the venerability of living situation Mr Mosquera will go to [facility] tomorrow as per meeting with the counselor as well as the leader of the counselor Objective: 12/04/19 16:28 Vital Signs Temperature 97.4 F L 12/04/19 13:00 Pulse Rate 67 12/04/19 13:00 Respiratory Rate 18 12/04/19 13:00 Blood Pressure 140/86 12/04/19 13:00 O2 Sat by Pulse Oximetry (%) Laboratory Last Values WBC 6.6 K/mm3 (4.0-10.0) 12/01/19 07:10 RBC 4.41 M/mm3 (4.00-5.60) 12/01/19 07:10 Hgb 15.1 GM/dL (11.7-16.9) 12/01/19 07:10 Hct 43.9 % (35.4-49) 12/01/19 07:10 MCV 99.8 fl (80-96) H 12/01/19 07:10 MCH 34.3 pg (25.7-33.7) H 12/01/19 07:10 MCHC 34.4 g/dl (32.0-35.9) 12/01/19 07:10 RDW 13.9 % (11.9-15.9) 12/01/19 07:10 Plt Count 168 K/MM3 (134-434) 12/01/19 07:10 MPV 10.3 fl (7.5-11.1) 12/01/19 07:10 Sodium 142 mmol/L (136-145) 12/01/19 07:10 Potassium 3.5 mmol/L (3.5-5.1) 12/01/19 07:10 Chloride 106 mmol/L (98-107) 12/01/19 07:10 Carbon Dioxide 32 mmol/L (21-32) 12/01/19 07:10 Anion Gap 4 MMOL/L (8-16) L 12/01/19 07:10 BUN 18.4 mg/dL (7-18) H 12/01/19 07:10 Creatinine 0.8 mg/dL (0.55-1.3) 12/01/19 07:10 Est GFR (CKD-EPI)AfAm 114.93 12/01/19 07:10 Est GFR (CKD-EPI)NonAf 99.16 12/01/19 07:10 Random Glucose 86 mg/dL (74-106) 12/01/19 07:10 Calcium 9.1 mg/dL (8.5-10.1) 12/01/19 07:10 Total Bilirubin 0.8 mg/dL (0.2-1) 12/01/19 07:10 AST 47 U/L (15-37) H 12/01/19 07:10 ALT 31 U/L (13-61) 12/01/19 07:10 Alkaline Phosphatase 64 U/L (45-117) 12/01/19 07:10 Total Protein 6.2 g/dl (6.4-8.2) L 12/01/19 07:10 Albumin 2.9 g/dl (3.4-5.0) L 12/01/19 07:10 RPR Titer Nonreactive (NONREACTIVE) 12/01/19 07:10 HIV 1&2 Antibody Screen Negative 12/01/19 07:10 HIV P24 Antigen Negative 12/01/19 07:10 lab oted Assessment: 12/04/19 16:29 alcohol withdrawal 12/04/19 16:29 Plan: librium regiment
[2019-12-04] MEDS: THIAMINE HCL 100 MG TABLET (FP) PO SCH (22:57)
[2019-12-04] MEDS: traZODone HCL 50 MG TABLET (FP) PO SCH (22:57)
[2019-12-05 09:34] VITALS: BP 114/72; PULSE 65; TEMP 97.7
[2019-12-05] MEDS: ARIPiprazole 5 MG TABLET PO SCH (11:46)
[2019-12-05] MEDS: LISINOPRIL 10 MG TABLET (FP) PO SCH (11:46)
[2019-12-05] MEDS: HYDROCHLOROTHIAZIDE 25 MG TABLET (FP) PO SCH (11:46)
[2019-12-05] MEDS: NICOTINE 14 MG/24 HOURS TOPICAL PATCH TD SCH (11:46)
[2019-12-05] MEDS: PRENATAL VITAMINS W/ FOLIC ACID TABLET (FP) PO SCH (11:46)
--- NOTE | 2019-12-05 11:54 | DS ---
[facility] Detox Discharge Summary Admission Date: 11/30/19 Discharge Date: 12/05/19 - History Present History: Alcohol Dependence Additional Comments: 59 years old male admitted on 11/30/19 for alcohol withdrawal sx management treated with librium regiment Mr Mosquera has completed the librium regiment and tolerated well seen by psychiatrist resume abilify and trazadone alert oriented x 3 respiratory clear lungs bilaterally on auscultation abdomen soft round obese no rebound tenderness extremities full range of motion Pertinent Past History: time for discharge 30 minutes transportation arrived for the patient to [facility] - Physical Exam Results Vital Signs: Vital Signs Temperature 97.7 F 12/05/19 08:39 Pulse Rate 65 12/05/19 08:39 Respiratory Rate 16 12/05/19 08:39 Blood Pressure 114/72 12/05/19 08:39 O2 Sat by Pulse Oximetry (%) Pertinent Admission Physical Exam Findings: alcohol withdrawal Laboratory Last Values WBC 6.6 K/mm3 (4.0-10.0) 12/01/19 07:10 RBC 4.41 M/mm3 (4.00-5.60) 12/01/19 07:10 Hgb 15.1 GM/dL (11.7-16.9) 12/01/19 07:10 Hct 43.9 % (35.4-49) 12/01/19 07:10 MCV 99.8 fl (80-96) H 12/01/19 07:10 MCH 34.3 pg (25.7-33.7) H 12/01/19 07:10 MCHC 34.4 g/dl (32.0-35.9) 12/01/19 07:10 RDW 13.9 % (11.9-15.9) 12/01/19 07:10 Plt Count 168 K/MM3 (134-434) 12/01/19 07:10 MPV 10.3 fl (7.5-11.1) 12/01/19 07:10 Sodium 142 mmol/L (136-145) 12/01/19 07:10 Potassium 3.5 mmol/L (3.5-5.1) 12/01/19 07:10 Chloride 106 mmol/L (98-107) 12/01/19 07:10 Carbon Dioxide 32 mmol/L (21-32) 12/01/19 07:10 Anion Gap 4 MMOL/L (8-16) L 12/01/19 07:10 BUN 18.4 mg/dL (7-18) H 12/01/19 07:10 Creatinine 0.8 mg/dL (0.55-1.3) 12/01/19 07:10 Est GFR (CKD-EPI)AfAm 114.93 12/01/19 07:10 Est GFR (CKD-EPI)NonAf 99.16 12/01/19 07:10 Random Glucose 86 mg/dL (74-106) 12/01/19 07:10 Calcium 9.1 mg/dL (8.5-10.1) 12/01/19 07:10 Total Bilirubin 0.8 mg/dL (0.2-1) 12/01/19 07:10 AST 47 U/L (15-37) H 12/01/19 07:10 ALT 31 U/L (13-61) 12/01/19 07:10 Alkaline Phosphatase 64 U/L (45-117) 12/01/19 07:10 Total Protein 6.2 g/dl (6.4-8.2) L 12/01/19 07:10 Albumin 2.9 g/dl (3.4-5.0) L 12/01/19 07:10 RPR Titer Nonreactive (NONREACTIVE) 12/01/19 07:10 HIV 1&2 Antibody Screen Negative 12/01/19 07:10 HIV P24 Antigen Negative 12/01/19 07:10 lab noted - Treatment Hospital Course: Detox Protocol Followed, Detoxed Safely, Responded well, Discharged Condition Good, Rehab Referral Accepted Patient has Accepted a Rehab Referral to: [facility] - Medication Discharge Medications: Ambulatory Orders Aripiprazole [Abilify] 5 mg PO DAILY 11/30/19 Lisinopril/Hydrochlorothiazide [Lisinopril-Hctz 20-25 mg Tab] 20 mg PO DAILY traZODone HCL [Trazodone HCl] 50 mg PO HS 11/30/19 Albuterol Sulfate Inhaler - [Ventolin HFA Inhaler -] 2 puff IH Q4H PRN #1 inhaler 12/05/19 Hydrochlorothiazide [Hctz -] 25 mg PO DAILY #30 tablet 12/05/19 Lisinopril [Prinivil] 20 mg PO DAILY #30 tablet 12/05/19 - Diagnosis (1) Alcohol dependence with uncomplicated withdrawal Current Visit: Yes Status: Acute (2) Nicotine dependence Current Visit: Yes Status: Acute Qualifiers: Nicotine product type: cigarettes Substance use status: in withdrawal Qualified Code(s): F17.213 - Nicotine dependence, cigarettes, with withdrawal (3) Substance induced mood disorder Current Visit: Yes Status: Suspected (4) Asthma Current Visit: Yes Status: Chronic Qualifiers: Asthma severity: mild Asthma persistence: intermittent Asthma complication type: uncomplicated Qualified Code(s): J45.20 - Mild intermittent asthma, uncomplicated (5) Hypertension Current Visit: Yes Status: Chronic Qualifiers: Hypertension type: essential hypertension Qualified Code(s): I10 - Essential (primary) hypertension - AMA Did Patient Leave Against Medical Advice: No CIWA Score - CIWA Score Nausea/Vomitin-No Nausea/No Vomiting Muscle Tremors: None Anxiety: 1-Mildly Anxious Agitation: 0-Normal Activity Paroxysmal Sweats: 1-Minimal Palms Moist Orientation: 0-Oriented Tacttile Disturbances: 0-None Auditory Disturbances: 0-None Visual Disturbances: 0-None Headache: 0-None Present CIWA-Ar Total Score: 2
== END 2019-12-05 10:55 | disposition home or self-care (01) | DRG 774 ==
LOC: YASAS 12:36 → Y3N 13:54
PROVIDERS: ADMIT Allergy & Immunology; ATTEND Allergy & Immunology
PROC: HZ2ZZZZ Detoxification Services for Substance Abuse Treatment (ICD-10-PCS; principal; 2019-11-30)
DX: F10.230 Alcohol dependence with withdrawal, uncomplicated (principal); F14.20 Cocaine dependence, uncomplicated; F12.220 Cannabis dependence with intoxication, uncomplicated; F17.210 Nicotine dependence, cigarettes, uncomplicated; F19.280 Other psychoactive substance dependence with psychoactive substance-induced anxiety disorder; F19.24 Other psychoactive substance dependence with psychoactive substance-induced mood disorder; F31.81 Bipolar II disorder; I10 Essential (primary) hypertension; J45.20 Mild intermittent asthma, uncomplicated; D64.9 Anemia, unspecified; R56.9 Unspecified convulsions; Z86.69 Personal history of other diseases of the nervous system and sense organs
CPT/HCPCS: 36415; 80053; 85027; 86593; 87389; Q2036